=== PATIENT | female | born 1960 | race Caucasian/White ===

== ENCOUNTER 2017-11-22 19:04 | Emergency (ER) | payer BC, OTHER ==
[~2017-11-22] VITALS: Ht 170.2 cm; Wt 113.4 kg
[~2017-11-22 19:04] MED LIST: ACETADRYL 500-1 EACH PO; ACIDOPHILUS LA1 EACH PO; ALLOPURINOL 10100 M1 PO; ALLOPURINOL 30300 M1 PO; AMLODIPINE BESY10 MG PO; AUGMENTIN 875875 MG PO; CIPROFLOXACIN500 M1 PO; COZAAR100 MG PO; FLAGYL500 MG PO; LEVAQUIN 500 M500 M2 PO; NORCO 5-325 TA1 EACH PO; PROZAC10 MG PO; SINGULAIR 10 MG10 M1; TRIAMTERENE-HC1 EAC1 PO; TRIAMTERENE-HC1 EAC3 PO; ULTRAM 50MG TAB50 MG PO; ZANTAC 150MG T150 M1 PO; ZOFRAN ODT4 MG PO
[2017-11-22 19:55] LABS: URINE BLOOD NEGATIVE (Negative); URINE COLOR YELLOW; URINE GLUCOSE-RANDOM* NEGATIVE (Negative); URINE KETONES TRACE (Negative); URINE NITRITE-REFLEX NEGATIVE (Negative); URINE PROTEIN (DIPSTICK) 1+ (Negative); URINE UROBILINOGEN 0.2 E.U./dl (0.2-1.0)
[2017-11-22 19:57] LABS: URINE BILIRUBIN NEGATIVE (Negative); URINE LEUKOCYTES-REFLEX 1+ (Negative)
[2017-11-22 19:58] LABS: URINE CLARITY SL HAZY
[2017-11-22 20:00] LABS: SQUAMOUS 0-3 Few /LPF (0-3)
[2017-11-22 20:01] LABS: CASTS None Seen /LPF (None Seen); CRYSTALS None Seen /LPF (None Seen); URINE RBC None Seen /HPF (0-2); URINE WBC-REFLEX 6-15 Few /HPF (0-5)
[2017-11-22 20:16] LABS: ABSOLUTE NEUTROPHILS 7.6 thou/uL (1.4-8.2); BASOPHILS 0.5 % (0.0-2.0); EOSINOPHILS 1.4 % (0.0-3.0); HEMATOCRIT 38.5 % (37.0-47.0); HEMOGLOBIN 12.9 gm/dL (12.0-15.0); LYMPHOCYTES 18.1 % (24.0-44.0); MCH 28.9 pg (26.0-34.0); MCHC 33.5 g/dL (28.0-37.0); MCV 86.3 fL (80.0-100.0); MONOCYTES 6.6 % (1.0-8.0); PLATELET COUNT 241 thou/uL (150-400); POLYS 73.4 % (36.0-66.0); RBC 4.47 mil/uL (4.20-5.00); RDW 13.6 % (10.5-14.5); WBC 10.3 thou/uL (4.0-11.0)
[2017-11-22 20:24] LABS: CALCIUM 9.6 mg/dL (8.5-10.1)
[2017-11-22 20:30] LABS: ALBUMIN 3.5 g/dL (3.4-5.0); DIRECT BILIRUBIN 0.1 mg/dL (<0.1-0.3); TOTAL BILIRUBIN 0.5 mg/dL (<0.1-1.0); TOTAL PROTEIN 7.3 g/dL (6.4-8.2)
[2017-11-22] MEDS ORDERED: FLAGYL500 MG PO (21:42)
[2017-11-22] MEDS ORDERED: CIPRO500 M1 PO (21:42)
[2017-11-22 21:52] VITALS: BP 134/84
== END 2017-11-22 21:53 | disposition home or self-care (01) ==
LOC: ER 19:04
PROVIDERS: Emergency Medicine
DX: K57.92 Diverticulitis of intestine, part unspecified, without perforation or abscess without bleeding (principal); I10 Essential (primary) hypertension; M10.9 Gout, unspecified